=== PATIENT | male | born 1975 | race African-American/Black ===

== ENCOUNTER 2018-11-25 06:56 | Day surgery (SDC) | payer OTHER ==
[2018-11-25] MEDS: SOD CHLORIDE 0.9% 1,000 ML IV (11:00)
[2018-11-25] MEDS: DIPHENHYDRAMINE 50 MG INJ ×2 (11:30→11:36)
[2018-11-25] MEDS: LIDOCAINE 1% (MDV) 20 ML INJ (11:34)
[2018-11-25] MEDS: FENTAnyl 50 MCG/ML VIAL (11:36)
== END 2018-11-25 12:55 | disposition home or self-care (01) ==
LOC: SDS 06:56
DX: N02.2 Recurrent and persistent hematuria with diffuse membranous glomerulonephritis (principal)
CPT/HCPCS: 50200; 77012